=== PATIENT | female | born 1965 | race Hispanic/Latino ===

== ENCOUNTER 2018-11-03 18:14 | Emergency (ER) | payer OTHER ==
[2018-11-03] MEDS ORDERED: KETOROLAC TROMETHAMINE 60 MG/2 ML VIAL ONE (18:38)
== END 2018-11-03 19:48 | disposition home or self-care (01) ==
LOC: EDH 18:14
DX: S83.92XA Sprain of unspecified site of left knee, initial encounter (principal); X50.1XXA Overexertion from prolonged static or awkward postures, initial encounter; Y93.89 Activity, other specified; Y92.89 Other specified places as the place of occurrence of the external cause; Y99.8 Other external cause status
CPT/HCPCS: 73562; 81025; 96372; 99284; J1885

== ENCOUNTER 2025-06-01 17:32 | Emergency (ER) | payer SELFPAY ==
[~2025-06-01] VITALS: Ht 172.7 cm; Wt 97.1 kg
--- NOTE | 2025-06-01 17:43 | EKG ---
[facility] Test Date: 2025-06-01 Test Time: 17:35:42 Pat Name: EVONNE KING Department: [facility] Room: Gender: F Materials Intern: [id number] : 1965 Requested By: NANCY HANNA Order Number: [id number] Reading MD: Nigel Loo Measurements Intervals [place] Rate: 89 P: 45 MS: 153 QRS: -31 QRSD: 74 T: 61 QT: 365 QTc: 445 Interpretive Statements Sinus rhythm Probable left atrial enlargement Left axis deviation No previous ECG available for comparison Electronically Signed On 06-02-2025 11:13:03 MARKETING COMMUNICATIONS SPECIALIST by Nigel Loo Please click the below link to view image of tracing.
--- NOTE | 2025-06-01 17:45 | ERN ---
ED Note History of Present Illness Stated Complaint: CHEST PAIN, NECK PAIN Chief Complaint: Chest Pain Time Seen by MD: 17:35 Time Seen by Midlevel: 17:38 Dictation: 59-year-old female with no past medical history coming in with complaints of intermittent chest pain and neck pain for two months. Patient denies having any nausea, vomiting, diarrhea. Denies any back pain, jaw pain. Allergies: Coded Allergies: No Known Allergies (Unverified Allergy, Unknown, 06/01/25) Past Medical History Past Medical History: No Pertinent History Surgical History: Surgical History Other: OVARIAN CYST, KNEE Review of System Dictation Constitutional: Negative for fever,chills, and weight loss Eyes: Negative for injury, pain,redness, and discharge ENT: Negative for injury,pain or swelling Cardiovascular: Complaining of chest pain Respiratory: Negative for shortness of breath, cough, and wheezing, Abdomen/GI: Negative for abdominal pain, nausea, vomiting, diarrhea, and constipation Back: Negative for injury and pain : Negative for injury, bleeding and discharge MS/Extremity: Negative for injury and deformity Skin: Negative for rash, and discoloration Neuro: Negative for headache, weakness, numbness, tingling, and seizure Psych: Negative for suicide ideation, homicidal ideation, and hallucinations Review of Systems: was completed Initial Vital Sign VS Vital Signs Date Time Temp Pulse Resp B/P (MAP) Pulse Ox O2 Delivery O2 Flow Rate FiO2 06/01/25 17:36 98.8 96 16 119/82 100 Room Air 0 06/01/25 17:51 21 Physical Exam Dictation General: awake, alert, NAD Head/Face: Normocephalic, atraumatic Eyes: PERRL, EOMI, vision at baseline ENT: oral cavity clear, TMs clear, no signs of infection Neck: Trachea midline, supple, no nuchal rigidity Cardiovascular: RRR, normal S1/S2, No MRGs, no JVD, out reproducible chest pain on palpation to the sternum Respiratory: CTAB, no respiratory distress, No rales or wheezes Abdomen: Soft, non-tender, non-distended, normal bowel sounds, no guarding or rebound. Skin: Warm, dry, normal turgor, no rash MS/Extremity: Pulses equal, no cyanosis, neurovascular intact, FROM Neuro: COAx4, GCS 15, strength 5/5, CN 2-12 intact, normal cerebellar exam, normal gait, Psych: Normal behavior, mood, and affect normal Results (Laboratory/Radiology) Laboratory/Radiology Laboratory Tests Test 06/01/25 17:48 White Blood Count 13.4 K/uL (4.8-10.8) H Red Blood Count 4.83 MIL/uL (4.00-5.50) Hemoglobin 14.8 g/dL (12.0-16.0) Hematocrit 43.8 % (36-48) Mean Corpuscular Volume 90.7 fL (79-99) Mean Corpuscular Hemoglobin 30.6 pg (27.0-33.0) Mean Corpuscular Hemoglobin Concent 33.8 g/dL (32.0-36.0) Red Cell Distribution Width 13.9 % (11.0-15.5) Platelet Count 238 K/uL (130-400) Mean Platelet Volume 10.4 fL (7.5-10.5) Immature Granulocyte % (Auto) 0.7 % (0-1) Neutrophils (%) (Auto) 80.7 % (40.0-77.0) H Lymphocytes (%) (Auto) 10.6 % (21.0-51.0) L Monocytes (%) (Auto) 6.9 % (3.0-13.0) Eosinophils (%) (Auto) 0.7 % (0.0-8.0) Basophils (%) (Auto) 0.4 % (0.0-5.0) Neutrophils # (Auto) 10.8 K/uL (1.8-7.7) H Lymphocytes # (Auto) 1.4 K/uL (1.0-4.8) Monocytes # (Auto) 0.9 K/uL (0.1-1.0) Eosinophils # (Auto) 0.10 K/uL (0.00-0.70) Basophils # (Auto) 0.05 K/uL (0.00-0.20) Absolute Immature Granulocyte (auto 0.09 K/uL (0-1) Nucleated Red Blood Cells 0.0 % (0.0-0.19) Urine Color YELLOW (YELLOW) Urine Appearance CLEAR (CLEAR) Urine pH 5.5 (5.0-8.0) Urine Specific [place] 1.030 (1.001-1.031) Urine Protein NEGATIVE mg/dL (NEGATIVE) Urine Glucose (UA) NEGATIVE mg/dL (NEGATIVE) Urine Ketones NEGATIVE mg/dL (NEGATIVE) Urine Occult Blood NEGATIVE (NEGATIVE) Urine Nitrate NEGATIVE (NEGATIVE) Urine Bilirubin NEGATIVE mg/dL (NEGATIVE) Urine Urobilinogen 0.2 mg/dL (0.2-1.0) Urine Leukocyte Esterase 250 Drake/uL (NEGATIVE) H Urine RBC 2-5 /HPF (0-1) H Urine WBC 2-5 /HPF (0-1) H Urine Squamous Epithelial Cells RARE /HPF (0-2) Urine Bacteria None /HPF (None Seen) Sodium Level 140 mmol/L (136-145) Potassium Level 4.2 mmol/L (3.5-5.1) Chloride Level 106 mmol/L (101-111) Carbon Dioxide Level 25 mmol/L (21-32) Blood Urea Nitrogen 17 mg/dL (7-18) Creatinine 0.9 mg/dL (0.5-1.0) Glomerular Filtration Rate Calc 74 mL/min (>90) Random Glucose 93 mg/dL (70-105) Total Calcium 8.1 mg/dL (8.5-10.1) L Troponin I High Sensitivity 6 ng/L (4-50) B-Type Natriuretic Peptide 22 pg/mL (0-100) Lipase 31 U/L (16-77) Labs Reviewed?: Yes EKG Comment: EKGs shows sinus rhythm at a rate of 89. Probable left atrial enlargement ED Course ED Course Orders Procedure Category Date Status Time Cbc With Differential LAB 06/01/25 Complete 17:36 Basic Metabolic Panel LAB 06/01/25 Complete 17:36 Troponin I High LAB 06/01/25 Complete Sensitivity 17:36 12 Lead Ekg Tracing- EKG 06/01/25 Complete Technical 17:36 B-Type Natriuretic LAB 06/01/25 Complete Peptide 17:36 Chest 1vw RAD 06/01/25 Resulted 17:36 Urinalysis Profile LAB 06/01/25 Complete 17:36 Nitroglycerin 0.4mg PHA 06/01/25 In Process Sl Tab (Nitrostat) 18:00 Aspirin 81mg Chew Tab PHA 06/01/25 Complete (Aspirin 81mg Chew 18:00 Ondansetron 4mg Inj PHA 06/01/25 Complete (Zofran 4mg Inj) 18:00 Famotidine 20mg Vial PHA 06/01/25 Complete (Pepcid 20mg Vial) 18:00 Lipase LAB 06/01/25 Complete 18:19 Culture Urine CAMI 06/01/25 In Process 18:26 Current Medications Medications (Trade) Dose Ordered Sig/Tina Route PRN Reason Start Time Stop Time Status Last Admin Dose Admin Aspirin (Aspirin 81mg Chew Tab) 324 mg ONCE ONCE PO 06/01/25 18:00 06/01/25 18:01 DC 06/01/25 18:07 Famotidine (Pepcid 20mg Vial) 20 mg ONCE ONCE IV 06/01/25 18:00 06/01/25 18:01 DC 06/01/25 18:06 Nitroglycerin (Nitrostat) 0.4 mg AD PRN SL CHEST PAIN 06/01/25 18:00 07/01/25 17:59 06/01/25 18:07 Ondansetron HCl (zoFRAN 4MG INJ) 4 mg ONCE ONCE IVP 06/01/25 18:00 06/01/25 18:01 DC 06/01/25 18:06 Vital Signs Date Time Temp Pulse Resp B/P (MAP) Pulse Ox O2 Delivery O2 Flow Rate FiO2 06/01/25 17:51 98.8 88 16 121/74 100 Room Air* 0 21 06/01/25 17:36 98.8 96 16 119/82 100 Room Air 0 HEART Score Response (Comments) Value History: Low suspicion (0) 0 EKG: Normal 0 Age: 45-65yrs (+1) 1 Risk Factors: No known risk factors (0) 0 Initial Troponin: Normal limit (0) 0 Total 1 Medical Decision Making MDM MDM: 59-year-old female with no past medical history coming in with complaints of intermittent chest pain and neck pain for two months. Patient denies having any nausea, vomiting, diarrhea. Denies any back pain, jaw pain. Cardiac workup is all negative. Heart score one. After medication patient states he feels much better. Discussed with the patient she needs to follow up outpatient with PCP for further evaluation. Educated on red flag symptoms of when to return back to the emergency room. Patient verbalized understanding, answered all questions. Differential diagnosis: ACS, costochondritis, pleurisy Rationale: Tests considered and ordered secondary to shared decision making include: Previous outside records reviewed: Old ER visits. Risk of complication and/or morbidity or mortality of patient management: None Medications-Per medication reconciliation Need for hospitalization: Patient does not meet criteria for hospitalization. Need for emergency major/minor surgery: No There are no social concerns with this patient. Prescription drug management Prescriptions will include symptomatic care Patient's prior external medical records from other ER visits were reviewed by me as indicated. Prior testing and results from previous visits were reviewed. Prior tests were taken into account with medical decision making and resource utilization, independent historian/historians were used to obtain complete medical history. I independently interpreted the test that were performed, results were reviewed by me and considered findings on radiology if ordered. Medical management and examination interpretation discussions were had by me with other qualified healthcare professionals as indicated for the patient's care. DX & DISP Disposition: Discharge Departure Impression: Primary Impression: Chest wall pain Condition: Stable Additional Instructions: Your symptoms return or worsen please return to the emergency room, otherwise follow up with your primary care provider for further evaluation. Referrals: MAGDALENA MORAN [employer]OCK MACHINE LOADER (PCP) Time of Disposition: 18:58 I have reviewed the case, and I agree with, Diagnosis and Plan NANCY HANNA [facility] Jun 01, 2025 17:44
--- NOTE | 2025-06-01 17:48 | NUR ---
BLOOD COLLECTED AND PROVIDED TO EXTRUSION LINE OPERATOR POST IV START
[2025-06-01] MEDS: FAMOTIDINE 20MG VIAL IV ONE (18:06)
[2025-06-01] MEDS: ASPIRIN 81MG CHEW TAB PO ONE (18:07)
[2025-06-01] MEDS: NITROGLYCERIN 0.4 MG SL TAB SL PRN (18:07)
[2025-06-01 18:16] LABS: IMMATURE GRANULOCYTE ABSOLUTE 0.09 K/uL (0-1); NUCLEATED RED BLOOD CELLS 0.0 % (0.0-0.19); PLATELET COUNT (AUTO) 238 K/uL (130-400); RED BLOOD CELL COUNT(AUTO) 4.83 MIL/uL (4.00-5.50); RED CELL DISTRIBUTION WIDTH 13.9 % (11.0-15.5); WHITE BLOOD COUNT (AUTO) 13.4 K/uL (4.8-10.8)
[2025-06-01 18:23] LABS: CREATININE 0.9 mg/dL (0.5-1.0); GLOMERULAR FILTR. RATE CALC 74.0 mL/min (>90); GLUCOSE,RANDOM 93.0 mg/dL (70-105); SODIUM SERUM 140.0 mmol/L (136-145); UREA NITROGEN, BLOOD 17.0 mg/dL (7-18)
[2025-06-01 18:25] LABS: ADD UA MICROSCOPIC YES; APPEARANCE,URINE CLEAR (CLEAR); GLUCOSE, URINE (UA) NEGATIVE (NEGATIVE); LEUKOCYTE ESTERASE ,URINE 250 Leu/uL (NEGATIVE); NITRATE,URINE NEGATIVE (NEGATIVE); OCCULT BLOOD,URINE NEGATIVE (NEGATIVE)
--- NOTE | 2025-06-01 18:25 | HMCIMG ---
EXAM: CR Chest, 1 View. CLINICAL HISTORY: cp COMPARISON: None provided. FINDINGS: LUNGS: There is no mass, infiltrate, or acute pulmonary abnormality. PLEURAL SPACES: No evidence of pleural effusion or pneumothorax. MEDIASTINUM: The cardiomediastinal silhouette is within normal limits. BONES: No aggressive appearing osseous lesion seen. IMPRESSION: No acute cardiopulmonary pathology is evident. /[place]
[2025-06-01 18:28] LABS: SQUAMOUS EPITHELIAL CELL,UR RARE /HPF (0-2)
[2025-06-01 19:05] VITALS: BP 111/67; PULSE 81; RESP 16; TEMP 98.8; O2SAT 100
== END 2025-06-01 19:07 | disposition home or self-care (01) ==
LOC: EDH 17:32
DX: R07.89 Other chest pain (principal); M54.2 Cervicalgia; Z98.890 Other specified postprocedural states
CPT/HCPCS: 99285; 96374; 71045; 96375; 84484; 80048; 83880; 83690; 85025; 87086; 81001; 36415; 93005; J1308; J2405